=== PATIENT | female | born 1980 | race Caucasian/White ===

== ENCOUNTER → 2016-11-03 | Outpatient (CLI) | payer BC, OTHER ==
[~2016-11-03] MED LIST: FISH OIL PO; GLUC-111 PO; MAGNESIUM PO
[2016-11-03 08:43] LABS: HEMOGLOBIN 14.2 g/dL (11.7-16.4)
== END | disposition home or self-care (01) ==
LOC: STAR 07:23
PROVIDERS: ATTEND Student in an Organized Health Care Education/Training Program
DX: Z30.2 Encounter for sterilization (principal)
CPT/HCPCS: 36415; 85025

== ENCOUNTER 2016-11-20 10:39 | Day surgery (SDC) | payer BC, OTHER ==
[~2016-11-20] VITALS: Ht 162.6 cm; Wt 66.5 kg
[2016-11-20] MEDS ORDERED: LACTATED RINGERS 1,000 ML IV SCH (10:56)
[2016-11-20 10:59] VITALS: BP 128/72
[2016-11-20] MEDS ORDERED: MIDAZOLAM 1 MG/ML, 2ML ONE (11:45)
[2016-11-20] MEDS ORDERED: FENTANYL PF 250 MCG/5ML ONE (11:45)
[2016-11-20 12:07] LABS: HCG UR OBC PASS
[2016-11-20] MEDS ORDERED: KETOROLAC 30 MG/1 ML ONE (12:28)
[2016-11-20] MEDS ORDERED: ONDANSETRON 2MG/ML, 2ML ONE (12:28)
[2016-11-20] MEDS ORDERED: PHENYLEPHRINE 10 MG/ML ONE (12:28)
[2016-11-20] MEDS ORDERED: ROCURONIUM 10 MG/ML ONE (12:28)
[2016-11-20] MEDS ORDERED: DEXAMETHASONE 4 MG/ML, 5ML ONE (12:28)
[2016-11-20] MEDS ORDERED: METOCLOPRAMIDE 5 MG/ML, 2ML ONE (12:28)
[2016-11-20] MEDS ORDERED: PROPOFOL 10 MG/ML, 20ML ONE (12:28)
[2016-11-20] MEDS ORDERED: HALOPERIDOL 5 MG/ML IV PRN (13:00)
[2016-11-20] MEDS ORDERED: OXYcodone 5 MG/5 ML ORAL.SOL UDC PO PRN (13:00)
[2016-11-20] MEDS ORDERED: HYDROmorphone 1 MG/ML, 1ML IV PRN (13:00)
[2016-11-20] MEDS ORDERED: MEPERIDINE/PF 25MG/0.5ML IVPush PRN (13:00)
[2016-11-20] MEDS ORDERED: hydrALAzine 20 MG/ML, 1ML IV PRN (13:00)
[2016-11-20] MEDS ORDERED: ONDANSETRON 2MG/ML, 2ML IVPush PRN (13:00)
[2016-11-20] MEDS ORDERED: ACETAMINOPHEN 325 MG TABLET PO PRN (13:00)
[2016-11-20] MEDS ORDERED: LABETALOL 5MG/ML, 20ML IV PRN (13:00)
[2016-11-20] MEDS ORDERED: BUPIVACAINE/PF-EPI 0.25% 1:200K INFIL ONE (13:04)
[2016-11-20] MEDS ORDERED: SILVER NITRATE STICK TP ONE (13:34)
[2016-11-20] MEDS ORDERED: ACETAMINOPHEN 325 MG TABLET ONE (14:08)
[2016-11-20] MEDS ORDERED: OXYcodone 5 MG/5 ML ORAL.SOL UDC ONE (14:09)
[2016-11-20] MEDS ORDERED: FENTANYL PF 100 MCG/2ML ONE (14:12)
[2016-11-20] MEDS: FENTANYL PF 100 MCG/2ML IV PRN ×3 (14:14→14:26)
== END 2016-11-20 15:15 ==
LOC: OUT 10:39
PROVIDERS: ATTEND Student in an Organized Health Care Education/Training Program
DX: Z30.2 Encounter for sterilization (principal); N73.6 Female pelvic peritoneal adhesions (postinfective)
CPT/HCPCS: 36415; 58670; 81025; 86850; 86900; 88302; J1100; J1885; J2370; J2405; J2704; J2765; J3010; J7120; J2250